=== PATIENT | female | born 1955 | race Native Hawaiian/Other Pacific Islander ===

== ENCOUNTER 2016-06-18 16:49 | Inpatient (IN) | payer BC ==
[~2016-06-18] VITALS: Ht 177.8 cm; Wt 107.2 kg
[2016-06-18 16:50] VITALS: BP 143/65; TEMP 98.3
[2016-06-18 19:00] LABS: PLATELET COUNT 334 K/uL (152-353)
[2016-06-18 19:06] LABS: POTASSIUM 3.8 mmol/L (3.6-5.2); SODIUM 137 mmol/L (136-145)
[2016-06-19 02:27] VITALS: BP 152/77; TEMP 98; Ht 177.8 cm; Wt 107.2 kg
[2016-06-19] MEDS ORDERED: LEVO0.0723 PO (02:38)
[2016-06-19] MEDS ORDERED: MOBIC15 MG PO (02:39)
[2016-06-19] MEDS ORDERED: AMBIEN CR12.5 MG PO (02:40)
[2016-06-19 04:00] VITALS: BP 111/43; TEMP 98.6
[2016-06-19 07:50] VITALS: BP 129/68; TEMP 99.1
[2016-06-19 12:00] VITALS: BP 118/45; TEMP 98.9
[2016-06-19 16:00] VITALS: BP 134/81; TEMP 99.1
[2016-06-19 19:50] VITALS: BP 144/72; TEMP 98.6
[2016-06-20] VITALS: BP 109/35; TEMP 98.7
[2016-06-20 04:00] VITALS: BP 132/47; TEMP 98.2
[2016-06-20 05:11] LABS: PLATELET COUNT 282 K/uL (152-353)
[2016-06-20 05:36] LABS: POTASSIUM 3.8 mmol/L (3.6-5.2); SODIUM 139 mmol/L (136-145)
[2016-06-20 07:58] VITALS: BP 126/57; TEMP 98
[2016-06-20 12:25] VITALS: BP 138/72; TEMP 97.7
--- NOTE | 2016-06-20 14:45 | NUR ---
D/C INSTRUCTIONS GIVEN TO PT WITH RX ATTACHED. IV D/C'D R HAND 22G CATH TIP INTACT.
== END 2016-06-20 14:45 | disposition home or self-care (01) | DRG 392 ==
LOC: ED 16:49 → MED/SURG 23:11
PROVIDERS: Emergency Medicine; ADMIT Specialist
DX: K57.32 Diverticulitis of large intestine without perforation or abscess without bleeding (principal); N39.0 Urinary tract infection, site not specified; E03.8 Other specified hypothyroidism; B96.1 Klebsiella pneumoniae [K. pneumoniae] as the cause of diseases classified elsewhere
CPT/HCPCS: 36415; 80048; 80053; 81000; 83735; 85027; 87077; 87086; 87088; 87186; 96365; 96366; 96367; 96374; 99284; J0744; J1885; J3490

== ENCOUNTER 2017-10-29 11:34 | Outpatient (CLI) | payer BC ==
[~2017-10-29 11:34] MED LIST: AMBIEN CR12.5 MG PO; LEVO0.0723 PO; MOBIC15 MG PO
== END 2017-10-29 19:47 | disposition home or self-care (01) ==
LOC: US 11:34
DX: E07.9 Disorder of thyroid, unspecified (principal)

== ENCOUNTER 2017-12-23 07:30 | Outpatient (CLI) | payer BC | END 2017-12-23 20:27 | disposition home or self-care (01) | LOC: CT 07:30 | DX: K57.30 Diverticulosis of large intestine without perforation or abscess without bleeding (principal) ==

== ENCOUNTER 2018-05-13 08:16 | Outpatient (CLI) | payer BC | END 2018-05-13 20:38 | disposition home or self-care (01) | LOC: NM 08:16 | DX: R06.02 Shortness of breath (principal); Z13.820 Encounter for screening for osteoporosis; N95.9 Unspecified menopausal and perimenopausal disorder | CPT/HCPCS: A9500 ==

== ENCOUNTER 2019-08-15 07:47 | Outpatient (CLI) | payer OTHER, MEDICARE | END 2019-08-15 21:04 | disposition home or self-care (01) | LOC: LABW 07:47 | PROVIDERS: Nurse Practitioner | DX: E28.0 Estrogen excess (principal); E34.8 Other specified endocrine disorders; N95.1 Menopausal and female climacteric states; Z79.899 Other long term (current) drug therapy | CPT/HCPCS: 36415; 80061; 82947; 83036; 83525 ==

== ENCOUNTER 2019-10-17 08:11 | Outpatient (CLI) | payer OTHER, MEDICARE | END 2019-10-17 22:55 | disposition home or self-care (01) | LOC: LABW 08:11 | DX: R53.83 Other fatigue (principal); R73.09 Other abnormal glucose; E03.8 Other specified hypothyroidism; E34.8 Other specified endocrine disorders; N95.1 Menopausal and female climacteric states | CPT/HCPCS: 36415; 82627; 82651; 82670; 84144; 84305; 84402; 84403; 84439; 84443; 84481 ==

== ENCOUNTER 2020-05-14 07:23 | Outpatient (CLI) | payer OTHER, MEDICARE ==
[2020-05-14 08:03] LABS: PLATELET COUNT 275 K/uL (152-353)
[2020-05-14 08:26] LABS: POTASSIUM 4.1 mmol/L (3.6-5.2)
== END 2020-05-14 21:32 | disposition home or self-care (01) ==
LOC: LABW 07:23
PROVIDERS: ATTEND Nurse Practitioner
DX: L66.3 Perifolliculitis capitis abscedens (principal); R53.83 Other fatigue; E03.8 Other specified hypothyroidism; E34.8 Other specified endocrine disorders; N95.1 Menopausal and female climacteric states; R68.82 Decreased libido; E55.9 Vitamin D deficiency, unspecified; Z79.899 Other long term (current) drug therapy
CPT/HCPCS: 36415; 80053; 80061; 82306; 82607; 82627; 82670; 82728; 83036; 83540; 83550; 83735; 83789; 84144; 84270; 84402; 84403; 84432; 84439; 84443; 84481; 85027; 86376; 86800

== ENCOUNTER 2020-10-08 12:48 | Outpatient (CLI) | payer OTHER, MEDICARE | END 2020-10-08 21:50 | disposition home or self-care (01) | LOC: LABW 12:48 | PROVIDERS: ATTEND Nurse Practitioner | DX: E03.5 Myxedema coma (principal); E34.9 Endocrine disorder, unspecified; N95.1 Menopausal and female climacteric states; E55.9 Vitamin D deficiency, unspecified | CPT/HCPCS: 36415; 82627; 82670; 84144; 84402; 84403; 84439; 84443; 84481 ==

== ENCOUNTER 2020-11-20 13:33 | Outpatient (CLI) | payer OTHER, MEDICARE | END 2020-11-20 19:29 | disposition home or self-care (01) | LOC: LABW 13:33 | PROVIDERS: ATTEND Nurse Practitioner | DX: L66.3 Perifolliculitis capitis abscedens (principal); E03.9 Hypothyroidism, unspecified; E34.9 Endocrine disorder, unspecified; N95.1 Menopausal and female climacteric states; E55.9 Vitamin D deficiency, unspecified | CPT/HCPCS: 36415; 82306; 82627; 82642; 82670; 84144; 84270; 84402; 84403; 84439; 84443; 84481 ==

== ENCOUNTER 2021-05-30 09:23 | Outpatient (CLI) | payer OTHER, MEDICARE | END 2021-05-30 21:25 | disposition home or self-care (01) | LOC: LABW 09:23 | PROVIDERS: ATTEND Nurse Practitioner | DX: E03.8 Other specified hypothyroidism (principal); E34.8 Other specified endocrine disorders | CPT/HCPCS: 36415; 84439; 84443; 84481 ==

== ENCOUNTER 2021-07-03 11:15 | Outpatient (CLI) | payer OTHER, MEDICARE | END 2021-07-03 19:19 | disposition home or self-care (01) | LOC: LABW 11:15 | PROVIDERS: ATTEND Nurse Practitioner | DX: E03.8 Other specified hypothyroidism (principal); E34.8 Other specified endocrine disorders; E03.4 Atrophy of thyroid (acquired); N95.1 Menopausal and female climacteric states | CPT/HCPCS: 36415; 84439; 84443; 84481 ==

== ENCOUNTER 2021-09-17 10:52 | Outpatient (CLI) | payer OTHER, MEDICARE | END 2021-09-17 19:04 | disposition home or self-care (01) | LOC: LABW 10:52 | PROVIDERS: ATTEND Nurse Practitioner | DX: R53.83 Other fatigue (principal); E03.8 Other specified hypothyroidism; E34.8 Other specified endocrine disorders; N95.1 Menopausal and female climacteric states | CPT/HCPCS: 36415; 84439; 84443; 84481; 86376; 86800 ==

== ENCOUNTER 2021-10-03 10:57 | Outpatient (CLI) | payer OTHER, MEDICARE | END 2021-10-03 21:21 | disposition home or self-care (01) | LOC: US 10:57 | PROVIDERS: ATTEND Nurse Practitioner | DX: R49.0 Dysphonia (principal); E01.0 Iodine-deficiency related diffuse (endemic) goiter; E06.3 Autoimmune thyroiditis; D89.89 Other specified disorders involving the immune mechanism, not elsewhere classified ==

== ENCOUNTER 2022-01-08 08:31 | Outpatient (CLI) | payer OTHER, MEDICARE | END 2022-01-08 19:17 | disposition home or self-care (01) | LOC: LABW 08:31 | PROVIDERS: ATTEND Nurse Practitioner | DX: R53.83 Other fatigue (principal); R73.09 Other abnormal glucose; E03.8 Other specified hypothyroidism; E34.8 Other specified endocrine disorders; N95.1 Menopausal and female climacteric states; E55.9 Vitamin D deficiency, unspecified; Z13.89 Encounter for screening for other disorder | CPT/HCPCS: 36415; 82306; 82627; 82670; 83036; 84144; 84402; 84403; 84439; 84443; 84481 ==

== ENCOUNTER 2022-04-14 13:43 | Outpatient (CLI) | payer OTHER, MEDICARE ==
[2022-04-14 14:24] LABS: POTASSIUM 3.9 mmol/L (3.6-5.2)
== END 2022-04-14 19:02 | disposition home or self-care (01) ==
LOC: LABW 13:43
PROVIDERS: ATTEND Nurse Practitioner
DX: R53.83 Other fatigue (principal); E03.8 Other specified hypothyroidism; E34.8 Other specified endocrine disorders; N95.1 Menopausal and female climacteric states; E55.9 Vitamin D deficiency, unspecified; Z13.89 Encounter for screening for other disorder
CPT/HCPCS: 36415; 80053; 82306; 82607; 82627; 82642; 82670; 84144; 84402; 84403; 84439; 84443; 84481; 86376; 86800

== ENCOUNTER 2022-10-08 10:49 | Outpatient (CLI) | payer OTHER, MEDICARE | END 2022-10-08 21:21 | disposition home or self-care (01) | LOC: LABW 10:49 | PROVIDERS: ATTEND Nurse Practitioner | DX: R53.83 Other fatigue (principal); E06.3 Autoimmune thyroiditis; D89.89 Other specified disorders involving the immune mechanism, not elsewhere classified; E34.8 Other specified endocrine disorders; E03.4 Atrophy of thyroid (acquired); N95.1 Menopausal and female climacteric states; Z79.899 Other long term (current) drug therapy; Z13.89 Encounter for screening for other disorder | CPT/HCPCS: 36415; 84439; 84443; 84481; 86376; 86800 ==

== ENCOUNTER 2022-11-18 13:13 | Outpatient (CLI) | payer OTHER, MEDICARE | END 2022-11-18 20:19 | disposition home or self-care (01) | LOC: LABW 13:13 | PROVIDERS: ATTEND Nurse Practitioner | DX: R60.0 Localized edema (principal); R53.83 Other fatigue; E06.3 Autoimmune thyroiditis; D89.89 Other specified disorders involving the immune mechanism, not elsewhere classified; E03.8 Other specified hypothyroidism; E34.8 Other specified endocrine disorders; N95.1 Menopausal and female climacteric states; E55.9 Vitamin D deficiency, unspecified; Z79.899 Other long term (current) drug therapy; Z13.89 Encounter for screening for other disorder | CPT/HCPCS: 36415; 82306; 82607; 82627; 82670; 84144; 84270; 84402; 84403; 84439; 84443; 84481; 86376; 86800 ==